=== PATIENT | male | born 1950 | race Caucasian/White ===

== ENCOUNTER 2017-05-08 06:23 | Day surgery (SDC) | payer MEDICARE, OTHER ==
[2017-05-08] MEDS ORDERED: Sodium Chloride 0.9% 1,000 ML IV SCH (07:15)
[2017-05-08] MEDS ORDERED: Propofol 200 MG/20 ML SDV ONE (07:42)
[2017-05-08] MEDS ORDERED: Midazolam 1 MG/ML 2 ML SDV ONE (07:42)
[2017-05-08] MEDS ORDERED: fentaNYL 100 MCG/2 ML SDV ONE (07:42)
--- NOTE | 2017-05-08 11:59 | OR ---
DATE OF PROCEDURE: 05/08/2017 PROCEDURE: Colonoscopy. FINDINGS: Normal colonoscopy. PREOPERATIVE DIAGNOSIS: Screening colonoscopy. POSTOPERATIVE DIAGNOSIS: Screening colonoscopy. RISKS: Risks, benefits, alternatives, and limitations including but not limited to infection, bleeding, and perforation were explained to the patient and wished to proceed. PROCEDURE IN DETAIL: The patient was placed in a left lateral decubitus position. Digital rectal exam was performed without abnormality. The scope was introduced and advanced atraumatically into the ileocecal valve. The scope was brought back through the ascending, transverse, descending colon and retroflexed. No evidence of old or new blood, no polyps, no masses, no concerns. The patient tolerated the procedure well. Nav Saldana MD /[id number]
== END 2017-05-08 09:35 | disposition home or self-care (01) ==
LOC: JP.SDS 06:23
PROVIDERS: ATTEND Surgery
DX: Z12.11 Encounter for screening for malignant neoplasm of colon (principal)
CPT/HCPCS: G0121; J2250; J2704; J3010; J7040

== ENCOUNTER 2022-10-16 12:49 | Emergency (ER) | payer MEDICARE, OTHER | END 2022-10-16 13:40 | disposition home or self-care (01) | LOC: JP.ED 12:49 | DX: S01.112A Laceration without foreign body of left eyelid and periocular area, initial encounter (principal); E66.9 Obesity, unspecified; Z68.36 Body mass index [BMI] 36.0-36.9, adult; Z79.82 Long term (current) use of aspirin; Z79.899 Other long term (current) drug therapy; W18.09XA Striking against other object with subsequent fall, initial encounter | CPT/HCPCS: 99282 ==

== ENCOUNTER 2024-03-02 12:58 | Emergency (ER) | payer MEDICARE, OTHER | END 2024-03-02 15:40 | disposition home or self-care (01) | LOC: JP.ED 12:58 | DX: S01.01XA Laceration without foreign body of scalp, initial encounter (principal); I10 Essential (primary) hypertension; E78.00 Pure hypercholesterolemia, unspecified; E66.9 Obesity, unspecified; Z95.1 Presence of aortocoronary bypass graft; Z79.82 Long term (current) use of aspirin; Z79.899 Other long term (current) drug therapy; Z68.36 Body mass index [BMI] 36.0-36.9, adult; W22.8XXA Striking against or struck by other objects, initial encounter | CPT/HCPCS: 12002; 99282 ==